=== PATIENT | male | born 1945 | race Caucasian/White ===

== ENCOUNTER 2021-05-22 06:56 | Day surgery (SDC) | payer MEDICARE, BC ==
[~2021-05-22] VITALS: Ht 175.3 cm; Wt 86.3 kg
[2021-05-22] MEDS ORDERED: PROPOFOL 1% 20 ML VIAL IVP ONE (06:57)
[2021-05-22] MEDS ORDERED: LIDOCAINE/PF 2% 5 ML VIAL IM ONE (06:57)
[2021-05-22] MEDS ORDERED: SODIUM CHLORIDE 0.9% 1,000 ML ONE (07:10)
[2021-05-22 07:16] LABS: COVID AG,FIA SOURCE NASAL SWAB
[2021-05-22] MEDS ORDERED: PRAV10TA39 PO (07:29)
[2021-05-22] MEDS ORDERED: HYDR12.54 PO (07:54)
[2021-05-22] MEDS ORDERED: ASPI81TA39 PO (07:54)
[2021-05-22] MEDS ORDERED: VIT1CAPS47 PO (07:54)
[2021-05-22] MEDS ORDERED: MULT-1203 PO (07:54)
[2021-05-22] MEDS ORDERED: OMEG-136 PO (07:54)
[2021-05-22] MEDS ORDERED: LOSA-382 PO (07:54)
[2021-05-22] MEDS ORDERED: OMEP20 PO (07:54)
[2021-05-22] MEDS ORDERED: CHOL200016 PO (07:54)
[2021-05-22] MEDS ORDERED: PRAV40TA4 PO (08:00)
[2021-05-22] MEDS ORDERED: UBID300C PO (08:11)
[2021-05-22] MEDS ORDERED: APIX5TAB PO (08:19)
[2021-05-22] MEDS ORDERED: METO50TA9 PO (08:20)
[2021-05-22] MEDS ORDERED: ASCO500C6 PO (08:28)
== END 2021-05-22 11:15 | disposition home or self-care (01) ==
LOC: SDS 06:56
PROVIDERS: ATTEND Internal Medicine Cardiovascular Disease
DX: I48.91 Unspecified atrial fibrillation (principal); Z72.89 Other problems related to lifestyle; Z98.890 Other specified postprocedural states; I10 Essential (primary) hypertension; Z88.6 Allergy status to analgesic agent; Z79.899 Other long term (current) drug therapy
CPT/HCPCS: 87426; 92960; 93005; C9803; J2704; J3490; J7030